=== PATIENT | male | born 1980 | race Hispanic/Latino ===

== ENCOUNTER 2017-06-26 19:45 | Inpatient (IN) | payer BC ==
[2017-06-26] MEDS ORDERED: Sodium Chloride 0.9% 1,000 ML IV STA (20:52)
[2017-06-26] MEDS ORDERED: Sodium Chloride 0.9% 100 ML ONE (21:28)
[2017-06-26] MEDS ORDERED: Iohexol 300 100 ML IJ ONE (21:28)
[2017-06-26 21:31] LABS: BASO # 0.1 K/uL (0.0-0.2); BASO % 0.6 % (0.0-2.0); EOS # 0.1 K/uL (0.0-0.7); EOS % 0.5 % (0.0-4.0); HEMOGLOBIN 14.7 g/dL (12.0-18.0); LYMPH # 1.7 K/uL (1.0-4.3); LYMPH % 6.8 % (20.0-40.0); MEAN CORPUSCULAR HEMOGLOBIN 24.5 pg (27.0-31.0); MEAN CORPUSCULAR HGB CONC 33.1 g/dL (33.0-37.0); MEAN PLATELET VOLUME 9.6 fl (7.2-11.7); NEUT # 21.9 K/uL (1.8-7.0); NEUT % 88.1 % (50.0-75.0); PLATELET COUNT 348 K/uL (130-400); RBC 5.99 Mil/uL (4.40-5.90); RED CELL DISTRIBUTION WIDTH 15.4 % (11.5-14.5); WHITE BLOOD COUNT 24.8 K/uL (4.8-10.8)
[2017-06-26 21:41] LABS: ALBUMIN 4.4 g/dL (3.5-5.0); ALT/SGPT 38 U/L (21-72); AST/SGOT 31 U/L (17-59); BLOOD UREA NITROGEN 12 mg/dl (9-20); CALCIUM 9.4 mg/dL (8.4-10.2); GFR AFRICAN-AMERICAN > 60; GFR NON-AFRICAN AMERICAN > 60; LIPASE 79 U/L (23-300)
[2017-06-26] MEDS ORDERED: metroNIDAZOLE 500mg/100ml NS 100 ML IV STA (21:42)
[2017-06-26] MEDS ORDERED: Ciprofloxacin 400mg/200ml D5W 400 MG/200 ML BAG IV STA (21:42)
[2017-06-26 21:47] LABS: INR 1.2 (0.9-1.2); PARTIAL THROMBOPLASTIN TIME 32.5 Seconds (25.6-37.1); PROTHROMBIN TIME 12.8 Seconds (9.8-13.1)
[2017-06-26 21:50] LABS: BENZODIAZEPINES, UR NEGATIVE (NEGATIVE)
[2017-06-26 21:55] LABS: BARBITURATES, UR NEGATIVE (NEGATIVE); OPIATES, UR NEGATIVE (NEGATIVE)
--- NOTE | 2017-06-26 22:10 | ED PDOC ---
HPI: Abdomen Time Seen by Provider: 06/26/17 20:24 Chief Complaint (Nursing): Abdominal Pain Chief Complaint (Provider): Abdominal Pain History Per: Patient History/Exam Limitations: no limitations Onset/Duration Of Symptoms: Hrs (24) Current Symptoms Are (Timing): Still Present Additional Complaint(s): 37 year old male, with a history of Chron's Disease, presents to the emergency department for spasmodic, diffuse pain that radiates from the upper abdomen, associated with multiple episodes of non bilious and bloody vomiting, onset 24 hours. The patient reports that even though it has been five years since his last Chron's flare up, symptoms feels similar. He notes the cessation of his Chron's medication, Humira and Remicade, about a year ago. The patient also notes that pain worsens when he eats, resulting in decreased appetite. The last meal he ate before symptoms began was a usual meal of cheese steak and fries. His last bowel movement was yesterday morning. Denies fever but does report chills. PMD: none provided Past Medical History Reviewed: Historical Data, Nursing Documentation, Vital Signs Vital Signs: Last Vital Signs Temp 98.3 F 06/27/17 08:32 Pulse 88 06/27/17 08:32 Resp 19 06/27/17 08:32 BP 130/74 06/27/17 08:32 Pulse Ox 94 L 06/27/17 08:32 - Medical History PMH: Crohn's Disease Denies: Chronic Kidney Disease - Surgical History Surgical History: No Surg Hx - Family History Family History: States: Other Other Family History: Autoimmune disease (Multiple Sclerosis) - Social History Current smoker - smoking cessation education provided: No Alcohol: Occasional Drugs: Cannabis (rarely) - Home Medications Home Medications: Ambulatory Orders Medication Instructions Recorded clonazePAM [clonAZEPAM] 1 mg PO BID 06/27/17 - Allergies Allergies/Adverse Reactions: Allergies Allergy/AdvReac Type Severity Reaction Status Date / Time No Known Allergies Allergy Verified 06/26/17 20:10 Review of Systems ROS Statement: Except As Marked, All Systems Reviewed And Found Negative Constitutional: Positive for: Chills. Negative for: Fever Gastrointestinal: Positive for: Nausea, Vomiting, Abdominal Pain Physical Exam - Reviewed Nursing Documentation Reviewed: Yes Vital Signs Reviewed: Yes - Physical Exam Appears: Positive for: Uncomfortable, In Acute Distress Head Exam: Positive for: ATRAUMATIC, NORMOCEPHALIC Skin: Positive for: Warm, Dry Eye Exam: Positive for: EOMI, PERRL ENT: Positive for: Pharynx Is (clear), Other (dry mucous membranes) Neck: Positive for: Painless ROM, Supple Cardiovascular/Chest: Positive for: Tachycardia (regular rhythm) Respiratory: Positive for: Normal Breath Sounds. Negative for: Respiratory Distress Gastrointestinal/Abdominal: Positive for: Tenderness (to palpation), Distended ( mild), Guarding (voluntary). Negative for: Mass, Rebound Back: Positive for: Normal Inspection. Negative for: Decreased ROM Extremity: Positive for: Normal ROM. Negative for: Deformity Lymphatic: Negative for: Adenopathy Neurologic/Psych: Positive for: Alert. Negative for: Motor/Sensory Deficits - Laboratory Results Result Diagrams: 06/26/17 21:26 06/26/17 21:26 - ECG O2 Sat by Pulse Oximetry: 95 (RA) Pulse Ox Interpretation: Normal Medical Decision Making Medical Decision Making: Initial Impression: Abdominal Pain Differential Dx: prone exacerbation, bowel obstruction, constipation, gastroenteritis, dehydration, pancreatitis Time: 21:00 Plan: -- CT Abd/Pelvis PO and IV contrast --CMP --Urine Drug Screen --Lact acid, plasma --LIPASE --ED Urine dipstick --CBC with differential --PTT and PT --Obstructive series --Blood Culture --Nasogastric Tube insertion --Ciprofloxacin 400mg in 200ml IV --Dextrose 1000ml IV --Flagyl 100ml IV --Morphine 4mg IVP --Sodium Chloride 0.9% 1000ml IV --Iohexol 50ml PO --Prednisone 125 mg IVP --Zofran 8mg IV Time: 21:40 --Obstructive series demonstrates abnormal spiraling bowel loops and multiple air fluid levels. --Labs show marked leukocytosis Time: 21:51 --Consulted Accounting Officer Huan Cifuentes for surgery for possible small bowel obstruction Accession No. : [id number] Patient Name / ID : KAITLIN GARCIA / [id number] Exam Date : 06/26/2017 23:07:29 ( Approved ) Study Comment : Sex / Age : M / 37Y Creator : DANIEL GLASGOW Dictator : Plumber Assistant : Aeronautics Teacher : DANIEL GLASGOW Approver2 : Report Date : 06/26/2017 23:42:00 My Comment : [facility] Division of Radiology [address] [place] [address] Tel. no. Patient Name: RADHA MADRIGAL Pt. Address: [address] [place] [address] Rec #: [id number] [place] [address]: Andriy Ayala DO Pt Order Location: [facility] : 1980 Male Age: 37 Order #: [id number] Reason for exam: aabdominal pain, suspected SBO CT Scan ABD PELVIS PO IV CONTRAST Exam Date: 06/26/17 This imaging exam was performed at [facility] EXAM: CT Abdomen and Pelvis With Intravenous Contrast CLINICAL HISTORY: 37 years old, male; Pain; Abdominal pain; Other: Suspected sbo; Patient HX: HX of chron's disease; Additional info: Aabdominal pain, suspected sbo TECHNIQUE: Axial computed tomography images of the abdomen and pelvis with intravenous contrast. All CT scans at this facility use one or more dose reduction techniques, viz.: automated exposure control; ma/kV adjustment per patient size (including targeted exams where dose is matched to indication; i.e. head); or iterative reconstruction technique. Coronal and sagittal reformatted images were created and reviewed. CONTRAST: 95 mL of [id number] administered intravenously. COMPARISON: No relevant prior studies available. FINDINGS: Lung bases: Unremarkable. No mass. No consolidation. ABDOMEN: Liver: Hepatic steatosis. Trace perihepatic fluid. Trace perisplenic fluid. Gallbladder and bile ducts: Unremarkable. No calcified stones. No ductal dilation. Pancreas: Unremarkable. No mass. No ductal dilation. Spleen: Borderline splenomegaly. Adrenals: Unremarkable. No mass. Kidneys and ureters: Unremarkable. No solid mass. No hydronephrosis. Stomach and bowel: Fluid in rectum consistent with diarrhea. PELVIS: Appendix: Fluid-filled small bowel loops some of which are dilated. Thick walled loop of bowel in the right lower quadrant, appears to represent a thick walled cecum. Appendix is unremarkable. Fluid-filled, dilated terminal ileum. Bladder: Unremarkable. No mass. Reproductive: Unremarkable as visualized. ABDOMEN and PELVIS: Intraperitoneal space: Small amount of fluid in the right lower quadrant. No free air. Bones/joints: No acute fracture. No dislocation. Soft tissues: Unremarkable. Vasculature: Unremarkable. No abdominal aortic aneurysm. Lymph nodes: Mesenteric lymph nodes are mildly prominent. Tubes, lines and devices: Nasogastric tube in stomach. IMPRESSION: 1. Patient with history of Crohn's disease, with abnormally thickened and cecum and distal small bowel dilatation, indicative of partial small bowel obstruction. Fluid-filled colon consistent with diarrhea. 2. No evidence of abscess, free air, or fistulization. Dictated By: Daniel Glasgow MD Dictated Date/Time: 06/26/172341 Signed By: Daniel Glasgow MD Date Signed: [id number] Transcribed By: KATHERINE Transcribe Date/Time : 06/26/172341 JUANY/YOUNG ZARAGOZA resident care aid. Pt to be hospitalized under Dr Cifuentes Surgery manager neonatal. MILA pt findings and plan of care. Scribe Attestation: Documented by Ashley Garner, acting as a scribe for Katelin Chavez MD Provider Scribe Attestation: All medical entries made by the Scribe were at my direction and personally dictated by me. I have reviewed the chart and agree that the record accurately reflects my personal performance of the history, physical exam, medical decision making, and the department course for this patient. I have also personally directed, reviewed, and agree with the discharge instructions and disposition. Disposition - Clinical Impression Clinical Impression: Partial small bowel obstruction, Crohn's disease, Sepsis Counseled Patient/Family Regarding: Studies Performed, Diagnosis - Disposition Disposition Time: 23:00 Condition: FAIR - Pt Status Changed To: Hospital Disposition Of: Inpatient - Admit Certification Admit to Inpatient:: After my assessment, the patient will require hospitalization for at least two midnights. This is because of the severity of symptoms shown, intensity of services needed, and/or the medical risk in this patient being treated as an outpatient. - POA Present On Arrival: None
[2017-06-26] MEDS ORDERED: Iohexol 240 (50 ml) PO STA (22:15)
--- NOTE | 2017-06-26 22:17 | CP.PCM.CON ---
History of Present Illness - History of Present Illness History of Present Illness: General Surgery Note for Dr. Cifuentes Reason for Consult: suspected SBO 37M with PMH that includes Crohn's and Anxiety who presents to [facility] for abdominal pain and nausea/vomiting. Patient was seen and evaluated in the ED. Patient states the pain began 24 hours ago while at home. He states that the pain woke him up from sleep. He reports eating a cheesesteak and wings for dinner a few hours earlier. He believed the pain at first was from in digestion. Patient subsequently had a couple episodes of nausea/vomiting with NBNB emesis. Patient reports sudden onset of symptoms. He states that he has had similar pain in the past for Crohn's flares. He rates pain as severe intensity. He describes pain as constant cramping or spasming located in epigastrium. He states eating/drinking/movement/certain positions exacerbates his symptoms while keeping still lessens them. Denies recent illness or sick contacts. Last BM was yesterday morning. Denies fevers/chills, cp, SOB, palpitations, diarrhea, incontinence, urinary symptoms, melena, hematemesis, hematochezia. PMD: Denies PMH: Crohn's, Anxiety Meds: Klonopin Allergy: NKDA PSH: Denies FH: non-contributory Social: everyday smoker for years - e cigarette, Rare occasional EtOH, sparse Marijuana use Review of Systems - Review of Systems All systems: reviewed and no additional remarkable complaints except (as per HPI ) Past Patient History - Past Social History Smoking Status: E cigarett - CARDIAC Hx Cardiac Disorders: No - PULMONARY Hx Respiratory Disorders: No - NEUROLOGICAL Hx Neurological Disorder: No - HEENT Hx HEENT Problems: No - RENAL Hx Chronic Kidney Disease: No - ENDOCRINE/METABOLIC Hx Endocrine Disorders: No - HEMATOLOGICAL/ONCOLOGICAL Hx Blood Disorders: No - INTEGUMENTARY Hx Dermatological Problems: No - MUSCULOSKELETAL/RHEUMATOLOGICAL Hx Musculoskeletal Disorders: No - GASTROINTESTINAL Hx Crohn's Disease: Yes - GENITOURINARY/GYNECOLOGICAL Hx Genitourinary Disorders: No - PSYCHIATRIC Hx Psychophysiologic Disorder: No Hx Substance Use: No - SURGICAL HISTORY Hx Surgeries: No - ANESTHESIA Hx Anesthesia: No Meds Allergies/Adverse Reactions: Allergies Allergy/AdvReac Type Severity Reaction Status Date / Time No Known Allergies Allergy Verified 06/26/17 20:10 - Medications Medications: Current Medications Dextrose/Sodium Chloride (Dextrose 5%-0.9% Ns 500 Ml) 1,000 mls @ 100 mls/hr IV .Q10H STEFANI Ciprofloxacin (Cipro 400mg/200ml Dsw) 400 mg in 200 mls @ 200 mls/hr IV STAT STA PRN Reason: Protocol Stop: 06/26/17 22:41 Metronidazole (Flagyl 500mg/100ml Ns) 100 mls @ 100 mls/hr IV STAT STA PRN Reason: Protocol Stop: 06/26/17 22:41 Iohexol (Omnipaque 240 (50 Ml)) 50 ml PO STAT STA Stop: 06/26/17 22:16 Physical Exam - Constitutional Appears: No Acute Distress, Younger Than Stated Age - Head Exam Head Exam: ATRAUMATIC, NORMOCEPHALIC - Eye Exam Eye Exam: EOMI, Normal appearance Pupil Exam: PERRL - ENT Exam ENT Exam: Mucous Membranes Moist - Neck Exam Neck exam: Positive for: Full Rom - Respiratory Exam Respiratory Exam: NORMAL BREATHING PATTERN - Cardiovascular Exam Cardiovascular Exam: REGULAR RHYTHM - GI/Abdominal Exam GI & Abdominal Exam: Distended, Normal Bowel Sounds, Soft. absent: Firm, Guarding, Rebound, Rigid Additional comments: patient received pain medication prior to abdominal exam - Extremities Exam Extremities exam: Positive for: normal capillary refill, pedal pulses present. Negative for: calf tenderness - Back Exam Back exam: absent: CVA tenderness (L), CVA tenderness (R) - Neurological Exam Neurological exam: Alert, CN II-XII Intact, Oriented x3 - Psychiatric Exam Psychiatric exam: Normal Affect, Normal Mood - Skin Skin Exam: Dry, Intact, Normal Color, Warm Results - Vital Signs Recent Vital Signs: Last Vital Signs Temp 98.9 F 06/26/17 20:10 Pulse 106 H 06/26/17 20:10 Resp 16 06/26/17 20:10 BP 155/102 H 06/26/17 20:10 Pulse Ox 95 06/26/17 22:16 - Labs Result Diagrams: 06/26/17 21:26 06/26/17 21:26 Labs: Laboratory Results - last 24 hr 06/26/17 06/26/17 06/26/17 21:26 21:26 21:26 WBC 24.8 H RBC 5.99 H Hgb 14.7 Hct 44.3 MCV 74.0 L MCH 24.5 L MCHC 33.1 RDW 15.4 H Plt Count 348 MPV 9.6 Neut % (Auto) 88.1 H Lymph % (Auto) 6.8 L [place] % (Auto) 4.0 Eos % (Auto) 0.5 Baso % (Auto) 0.6 Neut # (Auto) 21.9 H Lymph # (Auto) 1.7 [place] # (Auto) 1.0 H Eos # (Auto) 0.1 Baso # (Auto) 0.1 PT INR APTT Sodium 140 Potassium 3.6 Chloride 100 Carbon Dioxide 22 Anion Gap 22 H BUN 12 Creatinine 0.8 Est GFR ( Amer) > 60 Est GFR (Non-Af Amer) > 60 Random Glucose 119 H Lactic Acid Calcium 9.4 Total Bilirubin 0.6 AST 31 ALT 38 Alkaline Phosphatase 109 Total Protein 8.6 H Albumin 4.4 Globulin 4.2 H Albumin/Globulin Ratio 1.0 Lipase 79 Urine Opiates Screen Negative Urine Methadone Screen Negative Ur Barbiturates Screen Negative Ur Amphetamines Screen Negative U Benzodiazepines Scrn Negative U Oth Cocaine Metabols Negative U Cannabinoids Screen Positive H 06/26/17 06/26/17 21:26 21:26 WBC RBC Hgb Hct MCV MCH MCHC RDW Plt Count MPV Neut % (Auto) Lymph % (Auto) [place] % (Auto) Eos % (Auto) Baso % (Auto) Neut # (Auto) Lymph # (Auto) [place] # (Auto) Eos # (Auto) Baso # (Auto) PT 12.8 INR 1.2 APTT 32.5 Sodium Potassium Chloride Carbon Dioxide Anion Gap BUN Creatinine Est GFR ( Amer) Est GFR (Non-Af Amer) Random Glucose Lactic Acid 0.8 Calcium Total Bilirubin AST ALT Alkaline Phosphatase Total Protein Albumin Globulin Albumin/Globulin Ratio Lipase Urine Opiates Screen Urine Methadone Screen Ur Barbiturates Screen Ur Amphetamines Screen U Benzodiazepines Scrn U Oth Cocaine Metabols U Cannabinoids Screen Assessment & Plan - Assessment and Plan (Free Text) Assessment: 37 M with abdominal pain Plan: -NPO -IV fluids -Continue IV antibiotics -Analgesics/Anti-emetics PRN -NGT to low continuous suction -Serial abdominal exams -Monitor Bowel function -Strict I's & O's -f/u Obstructive series report -f/u CT abd/pelvis with PO & IV contrast -Discussed with Dr. Esau Ayala PGY1 - Date & Time Date: 06/26/17 Time: 21:45
[2017-06-26] MEDS ORDERED: Iohexol 240 (50 ml) ONE (22:20)
[2017-06-26 22:30] LABS: LYMPHOCYTE 6 % (20-50); MONOCYTE 5 % (0-10); NEUTROPHIL 89 % (42-75); PLATELET ESTIMATE NORMAL (NORMAL); TOTAL CELLS COUNTED 100
[2017-06-26 22:32] LABS: ANISOCYTOSIS SLIGHT; LARGE PLATELETS PRESENT; MICROCYTOSIS SLIGHT; OVALOCYTES SLIGHT; TEARDROP CELLS SLIGHT
[2017-06-26] MEDS ORDERED: metroNIDAZOLE 500mg/100ml NS 100 ML IVPB ONE (22:49)
[2017-06-26] MEDS ORDERED: Ciprofloxacin 400mg/200ml D5W 400 MG/200 ML BAG IVPB ONE (22:49)
[2017-06-26 22:53] LABS: PHENCYCLIDINE, UR NEGATIVE (NEGATIVE)
[2017-06-26] MEDS ORDERED: HYDROmorphone 0.5 mg/0.5 ml ISec IVP PRN (22:55)
--- NOTE | 2017-06-26 23:43 | CT ---
EXAM: CT Abdomen and Pelvis With Intravenous Contrast CLINICAL HISTORY: 37 years old, male; Pain; Abdominal pain; Other: Suspected sbo; Patient HX: HX of chron's disease; Additional info: Aabdominal pain, suspected sbo TECHNIQUE: Axial computed tomography images of the abdomen and pelvis with intravenous contrast. All CT scans at this facility use one or more dose reduction techniques, viz.: automated exposure control; ma/kV adjustment per patient size (including targeted exams where dose is matched to indication; i.e. head); or iterative reconstruction technique. Coronal and sagittal reformatted images were created and reviewed. CONTRAST: 95 mL of administered intravenously. COMPARISON: No relevant prior studies available. FINDINGS: Lung bases: Unremarkable. No mass. No consolidation. ABDOMEN: Liver: Hepatic steatosis. Trace perihepatic fluid. Trace perisplenic fluid. Gallbladder and bile ducts: Unremarkable. No calcified stones. No ductal dilation. Pancreas: Unremarkable. No mass. No ductal dilation. Spleen: Borderline splenomegaly. Adrenals: Unremarkable. No mass. Kidneys and ureters: Unremarkable. No solid mass. No hydronephrosis. Stomach and bowel: Fluid in rectum consistent with diarrhea. PELVIS: Appendix: Fluid-filled small bowel loops some of which are dilated. Thick walled loop of bowel in the right lower quadrant, appears to represent a thick walled cecum. Appendix is unremarkable. Fluid-filled, dilated terminal ileum. Bladder: Unremarkable. No mass. Reproductive: Unremarkable as visualized. ABDOMEN and PELVIS: Intraperitoneal space: Small amount of fluid in the right lower quadrant. No free air. Bones/joints: No acute fracture. No dislocation. Soft tissues: Unremarkable. Vasculature: Unremarkable. No abdominal aortic aneurysm. Lymph nodes: Mesenteric lymph nodes are mildly prominent. Tubes, lines and devices: Nasogastric tube in stomach. IMPRESSION: 1. Patient with history of Crohn's disease, with abnormally thickened and cecum and distal small bowel dilatation, indicative of partial small bowel obstruction. Fluid-filled colon consistent with diarrhea. 2. No evidence of abscess, free air, or fistulization.
[2017-06-26] MEDS ORDERED: HYDROmorphone 0.5 mg/0.5 ml ISec ONE (23:58)
[2017-06-27] MEDS: Lactated Ringer's 1,000 ML IV SCH ×2 (01:49→06:39)
[2017-06-27] MEDS ORDERED: metroNIDAZOLE 500mg/100ml NS 100 ML IVPB SCH (05:00)
[2017-06-27 08:34] VITALS: BP 130/74; PULSE 88; RESP 19; TEMP 98.3
--- NOTE | 2017-06-27 08:42 | RAD ---
PROCEDURE: Radiographs of the chest and abdomen (obstructive series) HISTORY: Abdominal pain r/o sbo COMPARISON: No prior. TECHNIQUE: AP radiograph of the chest, with upright and supine radiographs of the abdomen. FINDINGS: CHEST: Lungs: The lungs are well inflated and clear. There is linear atelectasis/scarring in the left lower lobe. Cardiovascular: Normal size heart. No pulmonary vascular congestion. Pleura: No pleural fluid. No pneumothorax. Other findings: None. ABDOMEN AND PELVIS: Bowel: There are multiple small air-fluid levels in the upper and mid abdomen and mild gaseous distension of the small bowel loops. No evidence of mechanical obstruction. Free air: None. Bones: Unremarkable. Other findings: None. IMPRESSION: Mild gaseous distension of the small bowel loops with multiple air-fluid levels may represent nonspecific enteritis or partial small bowel obstruction. Clinical correlation and follow-up is advised. Clear lungs.
[2017-06-27] MEDS ORDERED: Ciprofloxacin 400mg/200ml D5W 400 MG/200 ML BAG IVPB SCH (09:00)
[2017-06-29 14:24] VITALS: O2SAT 95
== END 2017-06-27 08:41 | disposition left against medical advice (07) | DRG 386 ==
LOC: H.ER 19:45 → H.ERHOLD 06-27 00:01 → H.MEDSURG1 06-27 01:20
PROVIDERS: ADMIT Specialist; ATTEND Specialist
DX: K50.912 Crohn's disease, unspecified, with intestinal obstruction (principal); Z82.0 Family history of epilepsy and other diseases of the nervous system; F17.210 Nicotine dependence, cigarettes, uncomplicated